=== PATIENT | male | born 1990 | race African-American/Black ===

== ENCOUNTER 2018-10-02 00:38 | Emergency (ER) | payer SELFPAY ==
[~2018-10-02] VITALS: Ht 182.9 cm; Wt 81.6 kg
[2018-10-02 00:50] VITALS: BP 135/70
--- NOTE | 2018-10-02 01:29 | RAD ---
Three-view left shoulder dated 10/02/2018. No comparison available. Clinical data indication: Pain. FINDINGS: 3 views left shoulder show normal bony alignment. No displaced fracture. No acute osseous or articular abnormality. IMPRESSION: No acute findings. Electronically signed by: Mason Osullivan MD (10/02/2018 1:26 AM) [facility]
[2018-10-02] MEDS ORDERED: CYCLOBENZAPRINE 10 MG TABLET. PO ONE (01:30)
[2018-10-02] MEDS ORDERED: HYDROcodone/APAP 5/325MG 1 TAB TABLET PO ONE (01:30)
[2018-10-02] MEDS ORDERED: NAPR-683 PO (01:45)
[2018-10-02] MEDS ORDERED: CYCL10TA2 PO (01:45)
--- NOTE | 2018-10-02 01:45 | PHYS DOC ---
Past Medical History Past Medical History: No Pertinent History Past Surgical History: No Surgical History Smoking: Cigarettes, Less than 1pk/day Alcohol Use: Occasionally Drug Use: Marijuana Adult General Chief Complaint Chief Complaint: UPPER EXTREMITY PAIN HPI HPI Patient is a 27 year old right-handed male who presents with complaining of left arm pain. Patient complaining of constant left upper arm muscle pain for the last 2 days that getting worse with movement without known injury and states he thinks he pulled a muscle. Patient denies focal neuro deficit, fever and chills, chest pain and shortness of breath. Patient states he took [id number] Tylenol with partial improvement of his pain. Review of Systems Review of Systems Constitutional: Denies fever or chills [] Eyes: Denies change in visual acuity, redness, or eye pain [] HENT: Denies nasal congestion or sore throat [] Respiratory: Denies cough or shortness of breath [] Cardiovascular: No additional information not addressed in HPI [] GI: Denies abdominal pain, nausea, vomiting, bloody stools or diarrhea [] : Denies dysuria or hematuria [] Musculoskeletal: Denies back pain, joint pain [] Integument: Denies rash or skin lesions [] Neurologic: Denies headache, focal weakness or sensory changes [] Endocrine: Denies polyuria or polydipsia [] All other systems were reviewed and found to be within normal limits, except as documented in this note. Current Medications Current Medications Current Medications Medications (Trade) Dose Ordered Sig/Remy Start Time Stop Time Status Last Admin Dose Admin Acetaminophen/ Hydrocodone Bitart (Lortab 5/325) 1 tab 1X ONCE 10/02/18 01:30 10/02/18 01:31 DC 10/02/18 01:36 1 TAB Cyclobenzaprine HCl (Flexeril) 10 mg 1X ONCE 10/02/18 01:30 10/02/18 01:31 DC 10/02/18 01:36 10 MG Allergies Allergies Allergies Coded Allergies Type Severity Reaction Last Updated Verified Penicillins Allergy Unknown 10/02/18 Yes Physical Exam Physical Exam Constitutional: Well developed, well nourished, mild distress, non-toxic appearance. [] HENT: Normocephalic, atraumatic. Eyes: PERRLA, EOMI, conjunctiva normal, no discharge. [] Neck: Normal range of motion, no tenderness, supple, no stridor. [] Cardiovascular:Heart rate regular rhythm, no murmur [] Lungs & Thorax: Bilateral breath sounds clear to auscultation [] Extremities: Left shoulder without deformity or sign of infection, painful range of motion, no tenderness, no cyanosis, no clubbing, no edema. [] Neurologic: Alert and oriented X 3, no focal deficits noted. [] Psychologic: Affect normal, judgement normal, mood normal. [] Current Patient Data Vital Signs Vital Signs Date Time Temp Pulse Resp B/P (MAP) Pulse Ox O2 Delivery O2 Flow Rate FiO2 10/02/18 00:50 98.5 100 16 135/70 (91) 98 Room Air 98.5 EKG EKG [] Radiology/Procedures Radiology/Procedures [facility] [address] [place] [address] IMAGING REPORT Signed PATIENT: JAMIE LUCAS RACCOUNT: [id number] : 1990 LOCATION: ER AGE: 27 SEX: M EXAM STATUS: REG ER ORD. PHYSICIAN: JUANITA ALEJANDRO MD REASON: pain PROCEDURE: SHOULDER 2+V LEFT Three-view left shoulder dated 10/02/2018. No comparison available. Clinical data indication: Pain. FINDINGS: 3 views left shoulder show normal bony alignment. No displaced fracture. No acute osseous or articular abnormality. IMPRESSION: No acute findings. Electronically signed by: Mason Osullivan MD (10/02/2018 1:26 AM) [facility] DICTATED and SIGNED BY: MASON OSULLIVAN MD DATE: 10/02/18 0126 Course & Med Decision Making Course & Med Decision Making Pertinent Labs and Imaging studies reviewed. (See chart for details) Evaluation of patient in ER showed 27-year-old male patient with complaining of left shoulder area pain without injury. X-ray was unremarkable. Plan discharge patient home with diagnosis of shoulder sprain. Sh[place] Disclaimer Gely Disclaimer This electronic medical record was generated, in whole or in part, using a voice recognition dictation system. Departure Departure Impression: Primary Impression: Left shoulder strain Disposition: 01 HOME, SELF-CARE (at 0144) Condition: STABLE Referrals: NO PCP (PCP) Patient Instructions: Shoulder Sprain Additional Instructions: Apply ice on the affected area Follow-up with your primary care physician in 3-5 days Return to ER if not getting better Scripts Naproxen (NAPROSYN) 500 Mg Tablet 1 TAB PO BID for pain, #20 TAB Prov: JUANITA ALEJANDRO MD 10/02/18 Cyclobenzaprine Hcl (CYCLOBENZAPRINE HCL) 10 Mg Tablet 1 TAB PO TID, #21 TAB Prov: JUANITA ALEJANDRO MD 10/02/18 JUANITA ALEJANDRO MD Oct 02, 2018 01:45
== END 2018-10-02 01:53 | disposition home or self-care (01) ==
LOC: ER 00:38
DX: S46.912A Strain of unspecified muscle, fascia and tendon at shoulder and upper arm level, left arm, initial encounter (principal); F17.210 Nicotine dependence, cigarettes, uncomplicated; Z88.0 Allergy status to penicillin; X58.XXXA Exposure to other specified factors, initial encounter; Y93.89 Activity, other specified; Y92.89 Other specified places as the place of occurrence of the external cause; Y99.8 Other external cause status
CPT/HCPCS: 73030; 99284